=== PATIENT | female | born 1960 | race Caucasian/White ===

== ENCOUNTER 2018-02-27 01:01 | Inpatient (IN) | payer OTHER ==
[~2018-02-27] VITALS: Wt 42.2 kg
[2018-02-27 01:12] VITALS: BP 57/31
[2018-02-27 05:30] VITALS: BP 62/37
[2018-02-27 05:40] VITALS: BP 54/31
--- NOTE | 2018-02-27 06:52 | NUR ---
PT ARRIVED ON UNIT FROM ER VIA STRETCHER AT 0540 ASSISTED TO BED PT NONRESPONSIVE NONVERBAL. PT DNR/DNI WITH A CONSULT FOR HOSPICE.PT HAS PRESSURE AREA ON SACRUM PICTURE TAKEN TO DOCUMENT. FAMILY AT BEDSIDE.
[2018-02-27 08:00] VITALS: BP 70/40
--- NOTE | 2018-02-27 13:00 | EKG ---
[place] [address] ELECTROCARDIOGRAM REPORT Name: DUSTY SUTHERLANDISSA GIRISH Room: [address] ADM IN M.R.#: [id number] Admission: 02/27/18 Attend Phys: Eric Phillips, Discharge: Date of : 56 Report #: [id number] THIS REPORT FOR: //name// [facility] ED Test Date: 2018-02-27 Test Time: 01:23:56 Pat Name: ESEQUIEL SUTHERLAND Department: Room: [address] Gender: F Forensic Dna Analyst: LONI : 1960 Requested By: Mae Guillen Order Number: [id number] Reading MD: Dameon Guerrero Measurements Intervals [place] Rate: 114 P: 73 NH: 102 QRS: 50 QRSD: 82 T: 87 QT: 336 QTc: 463 Interpretive Statements Sinus tachycardia Low voltage, extremity leads Anteroseptal infarct, old Nonspecific T abnormalities, lateral leads No previous ECG available for comparison Electronically Signed On 02-27-2018 13:00:28 [employer]ING [employer] by Dameon Guerrero [email or web address] <ELECTRONICALLY SIGNED> By: Dameon Guerrero MD, FAC 02/27/18 1300 0123 [id number] Dameon Guerrero MD, [facility] /EPI
--- NOTE | 2018-02-27 15:50 | NUR ---
ASSUMED PT CARE AT 0730 REPORT RECEIVED FROM NURSE. PT IS UNRESPONSIVE. MEDSURG STATUS. VS TAKEN BP 70/40 . ON 6 L NC SATURATION IS 95%. TEMP IS 97.5 IN AXILLARY. PT FAMILY IN ROOM. COMFORT CARE. IV PATENT. HOSPICE LIST GIVEN TO FAMILY. CASE MANAGEMENT CONSULT ORDERED BY DR URBANO. PT IS CALM. Q2TURN, WOUND DRESSING CHANGED IN THE SACRUM . BARRIER CREAM APPLIED. PT IS TOO TIRED TO EAT. WILL CONTINUE WITH COMFORT CARE.
--- NOTE | 2018-02-27 19:48 | NUR ---
PT AT 1930. NO AUDIBLE HEART TONES OR PALPABLE PULSES. NO SPONTANEOUS RESPIRATIONS. PUPILS FIXED AND DILATED. PT PRONOUNCED BY THIS FOUNDER / CEO AND [employer]OR[employer]. FAMILY NOTIFIED BY CHARGE NURSE.
--- NOTE | 2018-02-27 20:02 | NUR ---
PT NOT CANDIDATE FOR [employer]GAN DONATION. SPOKE WITH DANIEL FROM [employer] AT 1948.
--- NOTE | 2018-02-27 22:34 | NUR ---
RELEASED TO SPEAKS [facility] AT 2210. NO PERSONAL BELONGINGS WITH PATIENT.
== END 2018-02-27 22:10 | DRG 374 ==
LOC: M.ERS 01:01 → M.2W 03:51 → M.TBA-ER 03:51 → M.2W 05:30
PROVIDERS: ADMIT Family Medicine
DX: C18.9 Malignant neoplasm of colon, unspecified (principal); E43 Unspecified severe protein-calorie malnutrition; J96.01 Acute respiratory failure with hypoxia; C79.89 Secondary malignant neoplasm of other specified sites; H91.90 Unspecified hearing loss, unspecified ear; R57.1 Hypovolemic shock; Z66 Do not resuscitate; G20 Parkinson's disease; Z80.0 Family history of malignant neoplasm of digestive organs; Z28.21 Immunization not carried out because of patient refusal